=== PATIENT | female | born 1965 | race African-American/Black ===

== ENCOUNTER → 2017-12-23 | Outpatient (CLI) | payer BC ==
--- NOTE | 2017-12-28 15:32 | Diagnostic Imaging Report ---
#[id number] - MGSCRBIL #BILATERAL DIGITAL SCREENING MAMMOGRAM WITH CAD: 12/23/2017 CLINICAL: Routine screening. Comparison is made to exams dated: 12/19/2016 mammogram, 12/14/2015 mammogram and 11/22/2015 mammogram - [facility]. Current study contains 4 films. The tissue of both breasts is extremely dense, which lowers the sensitivity of mammography. Current study was also evaluated with a Computer Aided Detection (CAD) system. Multiple masses are noted in the left breast that have been previously diagnosed as cysts. However, there are now at least 5 present that generally appear larger and more numerous. Before there were 4 distinct cysts present. A followup left breast ultrasound is recommended for further evaluation d/t the increase. Stable scattered calcfications are present. IMPRESSION: INCOMPLETE: NEEDS ADDITIONAL IMAGING EVALUATION Additional evaluation with a left breast ultrasound is recommended. The patient will be contacted by the Mammography Department to schedule this appointment. Familia Ramirez Jr., D.O. cw/:12/28/2017 12:29:53 Roll Contour Grinder: Estela RODRIGUEZ(R)(M), [facility] letter sent: Additional Imaging Needed Mammogram BI-RADS: 0 Indeterminate
== END ==
LOC: MAMMO 14:54
PROVIDERS: ATTEND Internal Medicine
DX: Z12.31 Encounter for screening mammogram for malignant neoplasm of breast (principal)
CPT/HCPCS: 77067

== ENCOUNTER → 2018-01-08 | Outpatient (CLI) | payer BC ==
--- NOTE | 2018-01-11 09:55 | Diagnostic Imaging Report ---
#[id number] - USBRECOMLT ULTRASOUND OF THE LEFT BREAST : 01/08/2018 Comparison is made to exams dated: 12/23/2017 mammogram, 12/19/2016 mammogram, 12/14/2015 mammogram and 12/14/2015 ultrasound - [facility]. Color flow and real-time ultrasound were performed on the left breast. Multiple cysts are again noted. There are at least 6 or 7 of them. -At 2 o'clock 3 cm from the nipple is a cluster of 3 cysts grouped together; these measure 1.3 cm, 1.1 cm and 1.0 cm. -At 2-3 o'clock 3 cm from the nipple a large cyst measures 3.0 x 1.4 x 2.8 cm. -At 2 o'clock 1 cm from the nipple another large cyst measures 2.9 x 1.3 x 2.3 cm -At 5 o'clock adjacent to the nipple is a cyst measuring 2.2 x 1.3 x 1.9 cm IMPRESSION: BENIGN There is no sonographic evidence of malignancy. A 1 year screening mammogram is recommended. Familia Ramirez Jr., D.O. cw/:01/08/2018 13:43:26 Track Watchman: RYAN RED RT, [facility] letter sent: Compared to Prior B9 Ultrasound BI-RADS: 2 Benign
== END ==
LOC: US 08:35
PROVIDERS: ATTEND Internal Medicine
DX: N63.20 Unspecified lump in the left breast, unspecified quadrant (principal)

== ENCOUNTER → 2018-12-23 | Outpatient (CLI) | payer BC | LOC: MAMMO 13:06 | PROVIDERS: ATTEND Internal Medicine | DX: Z12.31 Encounter for screening mammogram for malignant neoplasm of breast (principal) | CPT/HCPCS: 77067 ==

== ENCOUNTER → 2020-01-06 | Outpatient (CLI) | payer BC | LOC: MAMMO 09:15 | PROVIDERS: ATTEND Internal Medicine | DX: Z12.31 Encounter for screening mammogram for malignant neoplasm of breast (principal) | CPT/HCPCS: 77067 ==

== ENCOUNTER → 2021-01-15 | Outpatient (CLI) | payer OTHER | LOC: MAMMO 13:22 | PROVIDERS: ATTEND Internal Medicine | DX: Z12.31 Encounter for screening mammogram for malignant neoplasm of breast (principal) | CPT/HCPCS: 77067 ==

== ENCOUNTER → 2021-08-13 | Outpatient (CLI) | payer OTHER | LOC: DX 14:28 | PROVIDERS: ATTEND Internal Medicine | DX: Z13.820 Encounter for screening for osteoporosis (principal) | CPT/HCPCS: 77080 ==

== ENCOUNTER → 2022-01-17 | Outpatient (CLI) | payer OTHER | LOC: MAMMO 08:31 | PROVIDERS: ATTEND Internal Medicine | DX: Z12.31 Encounter for screening mammogram for malignant neoplasm of breast (principal) | CPT/HCPCS: 77067 ==

== ENCOUNTER → 2024-01-20 | Outpatient (REF) | payer BC | LOC: MAMMO 09:31 | PROVIDERS: ATTEND Internal Medicine | DX: Z12.31 Encounter for screening mammogram for malignant neoplasm of breast (principal) | CPT/HCPCS: 77067 ==

== ENCOUNTER → 2025-01-23 | Outpatient (REF) | payer OTHER | LOC: MAMMO 13:47 | PROVIDERS: ATTEND Family Medicine | DX: Z12.31 Encounter for screening mammogram for malignant neoplasm of breast (principal) | CPT/HCPCS: 77067 ==